=== PATIENT | female | born 1960 | race Caucasian/White ===

== ENCOUNTER 2016-05-30 15:44 | Emergency (ER) | payer OTHER ==
[~2016-05-30] VITALS: Ht 162.6 cm; Wt 80.0 kg
[~2016-05-30 15:44] MED LIST: LEVO.1 PO; TAB-TAB PO
[2016-05-30 15:53] VITALS: BP 133/85; PULSE 75; RESP 18; TEMP 97.9; O2SAT 99
[2016-05-30] MEDS ORDERED: PLAQ200T PO (16:08)
[2016-05-30] MEDS ORDERED: SYNT88TA PO (16:08)
[2016-05-30] MEDS ORDERED: REST0.05 EACH EYE (16:08)
[2016-05-30] MEDS ORDERED: SODIUM CHLOR 0.9% 1000 ML INJ 1,000 ML IV SCH (16:12)
--- NOTE | 2016-05-30 16:12 | PD ---
HPI Chief Complaint: Musculoskeletal Complaint Time Seen by Provider: 16:06 Travel History International Travel<30 days: No Contact w/Intl Traveler<30days: No Traveled to known affect area: No History of Present Illness HPI 55-year-old female presents the emergency Department with left lower back/flank pain which started 4 days prior to this visit. Patient states she was at work and sat down and had sudden onset pain just at the rim of the left pelvis. She has no history of kidney stones, or significant sciatica in the past. Patient has been seeing a chiropractor for her "wellness" benefit at work. Patient states the pain is gotten progressively worse in the last 4 days despite going to the chiropractor once, and trying to rest. There is no specific injury history the patient denies ear or chills but has had some nausea today. She denies urinary symptoms. She denies diarrhea. Pain is now 10 over 10, and she can localize it to just above the left pelvic rim. She has no known drug allergies. PFSH Past Medical History Cancer: No Cardiovascular Problems: No Diabetes: No Endocrine: Yes Genitourinary: No Hepatitis: No Hiatal Hernia: No Immune Disorder: Yes (SCHOEGRINS) Musculoskeletal: No Neurologic: No Psychiatric: No Respiratory: No Thyroid Disease: Yes (HYPOTHYROID) ?: Not Past Surgical History Body Medical Devices: NONE Hysterectomy: Yes Oral Surgery: Yes (WISDOM TEETH) Social History Alcohol Use: No Tobacco Use: No Substance Use: No Allergies-Medications (Allergen,Severity, Reaction): Coded Allergies: No Known Allergies (Unverified , 05/30/16) Reported Meds & Prescriptions Reported Meds & Active Scripts Active Reported Restasis Opth Drops (Cyclosporine Opth Drops) 0.05% Emul 1 Drop EACH EYE BID Plaquenil (Hydroxychloroquine Sulfate) 200 Mg Tab 200 Mg PO DAILY Take with food Synthroid (Levothyroxine Sodium) 88 Mcg Tab 88 Mcg PO DAILY Review of Systems Except as stated in HPI: all other systems reviewed are Neg General / Constitutional: No: Fever, Chills Eyes: No: Visual changes HENT: No: Headaches Cardiovascular: No: Chest Pain or Discomfort Respiratory: No: Shortness of Breath Gastrointestinal: Positive: Nausea, No: Vomiting, Diarrhea, Abdominal Pain Genitourinary: Positive: Flank Pain, No: Urgency, Frequency, Dysuria, Hematuria, Decreased Urinary Output Musculoskeletal: Positive: Pain (see history of present illness) Skin: No Rash Neurologic: No: Weakness Psychiatric: No: Depression Endocrine: No: Polydipsia Hematologic/Lymphatic: No: Easy Bruising Physical Exam Narrative GENERAL: Patient appears in moderate distress. SKIN: Warm and dry. Normal color. Normal turgor. No rash. HEAD: Atraumatic. Normocephalic. EYES: Pupils equal and round. No scleral icterus. No injection or drainage. ENT: No nasal bleeding or discharge. Mucous membranes pink and moist. Pharynx is normal. Airway is patent. NECK: Trachea midline. Neck is supple nontender. CARDIOVASCULAR: Regular rate and rhythm. RESPIRATORY: No accessory muscle use. Clear to auscultation. Breath sounds equal bilaterally. GASTROINTESTINAL: Abdomen soft, non-tender, nondistended. Hepatic and splenic margins not palpable. No CVA tenderness noted. MUSCULOSKELETAL: Extremities without clubbing, cyanosis, or edema. No obvious deformities. Patient has pain in the left flank specifically over the left pelvic rim, but does not seem to be worsened with palpation. Straight leg raise is mildly positive on the left at 40. NEUROLOGICAL: Awake and alert. No obvious cranial nerve deficits. Motor grossly within normal limits. Five out of 5 muscle strength in the arms and legs. Normal speech. PSYCHIATRIC: Appropriate mood and affect; insight and judgment normal. Data Data Last Documented VS Vital Signs Date Time Temp Pulse Resp B/P Pulse Ox O2 Delivery O2 Flow Rate FiO2 05/30/16 16:23 97 05/30/16 15:53 97.9 75 18 133/85 Orders Complete Blood Count With Diff (05/30/16 16:12) Comprehensive Metabolic Panel (05/30/16 16:12) Urinalysis - C+S If Indicated (05/30/16 16:12) Ct Abd/Pel W/O Iv Contrast (05/30/16 16:12) Iv Access Insert/Monitor (05/30/16 16:12) Ecg Monitoring (05/30/16 16:12) Oximetry (05/30/16 16:12) NPO (05/30/16 16:12) Ondansetron Inj (Zofran Inj) (05/30/16 16:15) Sodium Chlor 0.9% 1000 Ml Inj (Ns 1000 M (05/30/16 16:12) Sodium Chloride 0.9% Flush (Ns Flush) (05/30/16 16:15) Ketorolac Inj (Toradol Inj) (05/30/16 16:15) Morphine Inj (Morphine Inj) (05/30/16 17:00) Urine Culture (05/30/16 17:30) Ceftriaxone Inj (Rocephin Inj) (05/30/16 18:00) Labs Laboratory Tests Test 05/30/16 05/30/16 16:15 17:30 White Blood Count 3.7 TH/MM3 Red Blood Count 4.48 MIL/MM3 Hemoglobin 12.3 GM/DL Hematocrit 36.3 % Mean Corpuscular Volume 81.0 FL Mean Corpuscular Hemoglobin 27.4 PG Mean Corpuscular Hemoglobin 33.8 % Concent Red Cell Distribution Width 13.5 % Platelet Count 127 TH/MM3 Mean Platelet Volume 8.3 FL Neutrophils (%) (Auto) 67.6 % Lymphocytes (%) (Auto) 22.1 % Monocytes (%) (Auto) 7.4 % Eosinophils (%) (Auto) 1.8 % Basophils (%) (Auto) 1.1 % Neutrophils # (Auto) 2.5 TH/MM3 Lymphocytes # (Auto) 0.8 TH/MM3 Monocytes # (Auto) 0.3 TH/MM3 Eosinophils # (Auto) 0.1 TH/MM3 Basophils # (Auto) 0.0 TH/MM3 CBC Comment DIFF FINAL Differential Comment Sodium Level 142 MEQ/L Potassium Level 4.1 MEQ/L Chloride Level 108 MEQ/L Carbon Dioxide Level 28.3 MEQ/L Anion Gap 6 MEQ/L Blood Urea Nitrogen 15 MG/DL Creatinine 0.83 MG/DL Estimat Glomerular Filtration 71 ML/MIN Rate Random Glucose 104 MG/DL Calcium Level 9.1 MG/DL Total Bilirubin 0.4 MG/DL Aspartate Amino Transf 21 U/L (AST/SGOT) Alanine Aminotransferase 28 U/L (ALT/SGPT) Alkaline Phosphatase 59 U/L Total Protein 8.3 GM/DL Albumin 3.5 GM/DL Urine Collection Type CLEAN CATCH Urine Color YELLOW Urine Turbidity CLEAR Urine pH 6.0 Urine Specific [place] 1.027 Urine Protein NEG mg/dL Urine Glucose (UA) NEG mg/dL Urine Ketones NEG mg/dL Urine Occult Blood NEG Urine Nitrite NEG Urine Bilirubin NEG Urine Leukocyte Esterase TRACE Urine WBC 9-14 /hpf Urine WBC Clumps OCC Urine Squamous Epithelial 0-5 /hpf Cells Urine Amorphous Sediment FEW Urine Bacteria FEW /hpf Microscopic Urinalysis Comment CULTURE INDICATED Urine Collection Time 1730 MDM Medical Decision Making Medical Screen Exam Complete: Yes Emergency Medical Condition: Yes Medical Record Reviewed: Yes Differential Diagnosis Left flank pain. Possible kidney stone. Muscle skeletal strain. Lumbago with sciatica. Possible early shingles. Narrative Course Patient is medically stable although in pain when examined. IV access is obtained and labs are checked including CBC, CMP, and urinalysis. CT of the abdomen and pelvis is obtained. Patient is given Toradol 30 mg IV as well as 4 mg of morphine IV and [address] shows no acute findings per radiologist. Patient's pain is much improved after the above medications. CBC is unremarkable, CMP is unremarkable, as is however is very suggestive of urinary tract infection. Patient is given 1000 mg Rocephin IV. Patient is felt stable to be discharged home on Keflex 500 mg 3 times a day 7 days. Patient also given tramadol 50 mg one every 6 hours when necessary pain #20. Patient given Zofran 4 mg one every 6 hours when necessary nausea vomiting. Patient is given prednisone 20 mg twice a day 5 days. Urine culture is pending. Patient should follow-up with her primary care physician or return to emergency department as needed. Diagnosis Primary Impression: Urinary tract infection Qualified Code: N30.00 - Acute cystitis without hematuria Additional Impressions: Lumbago with sciatica, left side Nausea & vomiting Qualified Code: R11.2 - Non-intractable vomiting with nausea, unspecified vomiting type Referrals: Primary Care Physician 2 days Patient Instructions: General Instructions, Narcotic given in the ED, Sciatica (ED) Additional Instructions: Patient is given Toradol 30 mg IV as well as 4 mg of morphine IV and [address] shows no acute findings per radiologist. Patient's pain is much improved after the above medications. CBC is unremarkable, CMP is unremarkable, as is however is very suggestive of urinary tract infection. Patient is given 1000 mg Rocephin IV. Patient is felt stable to be discharged home on Keflex 500 mg 3 times a day 7 days. Patient also given tramadol 50 mg one every 6 hours when necessary pain #20. Patient given Zofran 4 mg one every 6 hours when necessary nausea vomiting. Patient is given prednisone 20 mg twice a day 5 days. Urine culture is pending. Patient should follow-up with her primary care physician or return to emergency department as needed. Disposition: 01 DISCHARGE HOME Condition: Stable Dirk Cleveland May 30, 2016 16:12
[2016-05-30] MEDS ORDERED: SODIUM CHLORIDE 0.9% FLUSH 10 ML FLUSH IV FLUSH PRN (16:15)
[2016-05-30] MEDS ORDERED: ONDANSETRON HCL 4 MG/2 ML VIAL IVP ONE (16:15)
[2016-05-30] MEDS ORDERED: KETOROLAC TROMETHAMINE 30 MG/ML (IVP) VIAL IVP ONE (16:15)
[2016-05-30 16:23] VITALS: O2SAT 97
[2016-05-30 16:27] LABS: AUTOMATED NEUTROPHIL # 2.5 TH/MM3 (1.8-7.7); BASOPHIL % 1.1 % (0.0-2.0); EOSINOPHIL # 0.1 TH/MM3 (0-0.4); EOSINOPHIL % 1.8 % (0.0-4.0); HEMATOCRIT 36.3 % (35.0-46.0); HEMO FLAGS DIFF FINAL; LYMPH % 22.1 % (9.0-44.0); LYMPHOCYTE # 0.8 TH/MM3 (1.0-4.8); MEAN CORPUSCULAR HEMOGLOBIN 27.4 PG (27.0-34.0); MEAN CORPUSCULAR HGB CONC 33.8 % (32.0-36.0); MONO % 7.4 % (0.0-8.0); NEUT % 67.6 % (16.0-70.0); PLATELET COUNT 127 TH/MM3 (150-450); RED BLOOD COUNT 4.48 MIL/MM3 (4.00-5.30); RED CELL DISTRIBUTION WIDTH 13.5 % (11.6-17.2); WHITE BLOOD COUNT 3.7 TH/MM3 (4.0-11.0)
[2016-05-30 16:34] LABS: CHLORIDE 108 MEQ/L (98-107); POTASSIUM 4.1 MEQ/L (3.5-5.1); SODIUM (NA) 142 MEQ/L (136-145)
[2016-05-30 16:38] LABS: ANION GAP 6 MEQ/L (5-15); BICARBONATE 28.3 MEQ/L (21.0-32.0); BLOOD UREA NITROGEN 15 MG/DL (7-18)
[2016-05-30 16:41] LABS: ALT (GPT) 28 U/L (10-53); AST (GOT) 21 U/L (15-37); GLOMERULAR FILTRATION RATE 71 ML/MIN (>89)
[2016-05-30 16:42] LABS: TOTAL BILIRUBIN ADULT 0.4 MG/DL (0.2-1.0)
[2016-05-30 16:44] LABS: ALKALINE PHOSPHATASE 59 U/L (45-117)
[2016-05-30] MEDS ORDERED: MORPHINE SULFATE 4 MG/ML INJ IV PUSH ONE (17:00)
--- NOTE | 2016-05-30 17:20 | RADHPO ---
EXAM DATE/TIME: 05/30/2016 16:34 [facility] COMPARISON: No previous studies available for comparison. INDICATIONS : Left flank pain. ORAL CONTRAST: No oral contrast ingested. RADIATION DOSE: 16.76 CTDIvol (mGy) MEDICAL HISTORY : None SURGICAL HISTORY : Hysterectomy. ENCOUNTER: Initial ACUITY: 1 day PAIN SCALE: 5/10 LOCATION: Left flank TECHNIQUE: Volumetric scanning of the abdomen and pelvis was performed. Using automated exposure control and ad justment of the mA and/or kV according to patient size, radiation dose was kept as low as reasonably achievable to obtain optimal diagnostic quality images. FINDINGS: Lung bases are clear. No acute findings in the liver, spleen, adrenals, kidneys or pancreas. No bowel obstruction. No free air or free fluid. Gallstones are noted in the gallbladder. No biliary ductal d ilatation. Mild constipation. CONCLUSION: 1. No acute findings. Specifically no renal or ureteral calculi or obstructive uropathy. 2. Mild constipation. 3. Small fat-containing umbilical hernia. 4. Multiple gallstones without biliary ductal dilatation. Wilber Bello MD on May 30, 2016 at 17:10 Board Certified Radiologist. This report was verified electronically.
[2016-05-30 17:42] LABS: BLOOD, URINE NEG (NEG); GLUCOSE,URINE NEG (NEG); KETONE, URINE NEG (NEG); METHOD OF COLLECTION CLEAN CATCH; NITRITE,URINE NEG (NEG); URINE COLOR YELLOW (YELLW/STRAW)
[2016-05-30 17:46] LABS: BACTERIA, URINE FEW /hpf; CULTURE IF INDICATED CULTURE INDICATED; SQUAMOUS EPITHELIAL CELL URINE 0-5 /hpf (0-5)
[2016-05-30 17:47] LABS: COMMENT (UR) CULTURE INDICATED; COMMENT2 (UR) MUCOUS PRESENT
[2016-05-30] MEDS ORDERED: cefTRIAXone INJ 1,000 MG in SODIUM CHLORIDE 0.9% INJ 25 ML IV ONE (18:00)
[2016-05-30] MEDS ORDERED: cefTRIAXone INJ 1,000 MG in SODIUM CHLORIDE 0.9% INJ 100 ML IV ONE (18:00)
[2016-05-30] MEDS ORDERED: PRED20 PO (18:02)
[2016-05-30] MEDS ORDERED: CEPH-460 PO (18:02)
[2016-05-30] MEDS ORDERED: TRAM50TA PO (18:02)
[2016-05-30] MEDS ORDERED: ZOFR4TAB3 SL (18:02)
== END 2016-05-30 19:13 | disposition home or self-care (01) ==
LOC: PHEFT 15:44
DX: N30.00 Acute cystitis without hematuria (principal); B96.89 Other specified bacterial agents as the cause of diseases classified elsewhere; M54.42 Lumbago with sciatica, left side; R11.2 Nausea with vomiting, unspecified
CPT/HCPCS: 74176; 80053; 81001; 85025; 87086; 96361; 96365; 96375; 99284; J0696; J1885; J2270; J2405; J7030